=== PATIENT | male | born 1955 | race Caucasian/White ===

== ENCOUNTER 2016-08-24 18:52 | Inpatient (IN) ==
[2016-08-24] MEDS ORDERED: Aspirin 81 MG TAB.CHEW PO ONE (19:01)
--- NOTE | 2016-08-24 19:06 | Emergency Department Note ---
Disposition Clinical Impression: Chest pain Qualifiers: Chest pain type: unspecified Qualified Code(s): R07.9 - Chest pain, unspecified Disposition: Admitted As Inpatient Condition: Fair Forms: ED Satisfaction Letter Time of Disposition: 21:13 Chest Pain HPI - General Chief Complaint: ED Chest Pain Stated Complaint: CP Time Seen by Provider: 08/24/16 18:53 Source: patient Mode of arrival: EMS Limitations: no limitations Vital Signs Reviewed: Yes Nursing Notes Reviewed: Yes - History of Present Illness HPI Narrative: Patient is a 61-year-old male who presents to [facility] ED with a chief complaint of chest pain and difficulty breathing. States had some shortness of breath last night when he was laying down and had to sit up. Has been admitted in the past for congestive heart failure. He takes Lasix 40 mg daily. Past medical history significant for mechanical aortic valve, COPD, atrial fibrillation on Coumadin, heroin use. Patient was in drug rehabilitation at the [place] when he was sitting upright and developed some chest pain earlier today. A rapid response was called and patient was transferred here for further evaluation. Patient states he has been having some worsening chest pain that comes on with ambulation. Denies any nausea, vomiting, fever or chills. No recent cough or cold. No problems with abdominal pain, problems with urination or bowel movements. Last stress test was approximately 2 years ago. 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 Denies: nausea, vomiting, diaphoresis, fever, cough Treatments prior to arrival chest pain: none - Related Data Allergies Allergy/AdvReac Type Severity Reaction Status Date / Time No Known Allergies Allergy Verified 08/24/16 19:27 All systems ED: reviewed and negative except as stated. Chest Pain PMH - Past Medical History Medical history: Reports: atrial fibrillation, COPD Surgical history: Reports: heart valve replacement (mechanical aortic valve ( 2007)) - Social History Smoking Status: Current every day smoker Drug use: Reports: IVDU (heroin, last used 2 wks ago) Physical Exam - General Limitations: no limitations General appearance: alert, in no apparent distress - Head Head exam: atraumatic, normocephalic, normal inspection - Eye Eye exam: Present: normal appearance, PERRL, EOMI - ENT ENT exam: normal exam, normal oropharynx, mucous membranes moist - Neck Neck exam: Present: normal inspection, full ROM, trachea midline - Chest Chest inspection: Present: normal inspection, symmetric chest wall rise - Respiratory Respiratory exam: Present: normal lung sounds bilaterally - Cardiovascular Cardiovascular exam: Present: regular rate, normal rhythm, normal heart sounds - Abdominal Exam Abdominal exam: Present: soft, Non-Tender. Absent: tenderness, distention, guarding, rebound, rigidity - Extremities Exam Extremities exam: Present: normal inspection, full ROM. Absent: tenderness, pedal edema - Back Exam Back exam: Present: normal inspection, full ROM. Absent: tenderness - Neurological Exam Neurological exam: Present: alert, oriented X3 - Psychiatric Psychiatric exam: Present: normal affect, normal mood - Skin Skin exam: Present: warm, dry, intact, normal color Course Course Narrative: Patient seen and examined. Chest pain and difficulty breathing. Has had history of congestive heart failure. His lungs sound clear bilaterally. Chest pain seems atypical as it is sharp and left-sided. We will do a cardiopulmonary workup. - Reevaluation(s) Reevaluation #1: Cardiopulmonary workup unremarkable. He does have some signs of pulmonary edema on chest x-ray. However since he is having worsening exertional dyspnea and chest pain, we will go ahead and admit him for chest pain, rule out ACS. I spoke with the hospitalist Dr. Ricardo who has accepted patient for admission. Time: 21:08 Vital Signs Temperature 97.6 F 08/24/16 18:54 Pulse Rate 66 08/24/16 18:54 Respiratory Rate 20 08/24/16 18:54 Blood Pressure 127/79 08/24/16 18:54 O2 Sat by Pulse Oximetry 96 08/24/16 18:54 Temperature 97.6 F 08/24/16 18:54 Pulse Rate 60 08/24/16 20:35 Respiratory Rate 16 08/24/16 20:35 Blood Pressure 122/84 08/24/16 20:35 O2 Sat by Pulse Oximetry 94 L 08/24/16 20:35 Oxygen Delivery Oxygen Delivery Room Air Chest Pain - Medical Records Medical records reviewed: Yes I reviewed the patient's medical records. - Lab Data Lab results reviewed: Yes I reviewed the patient's lab results. Result diagrams: 08/24/16 19:22 08/24/16 19:22 Lab Results 08/24/16 08/24/16 08/24/16 Range/Units 19:22 19:22 19:22 WBC 11.4 H (4.3-11.1) K/mcL RBC 5.18 (4.19-5.50) M/mcL Hgb 15.2 (12.9-16.9) g/dL Hct 45.4 (37.5-50.1) % MCV 87.6 (83.0-100.0) fL MCH 29.3 (28.0-33.3) pg MCHC 33.5 (31.6-35.5) g/dL RDW 14.2 (11.5-14.5) % Plt Count 229 (140-400) K/mcL MPV 10.3 (9.4-12.4) fL Immature Gran % 0.5 (0-4) % Seg Neutrophils % 78.2 % Lymphocytes % 11.0 % Monocytes % 8.6 % Eosinophils % 1.3 % Basophils % 0.4 % Neutrophils # 8.9 (1.6-8.9) K/mcL Lymphocytes # 1.3 (0.6-4.6) K/mcL Monocytes # 1.0 (0.0-1.3) K/mcL Eosinophils # 0.2 (0.0-0.6) K/mcL Basophils # 0.1 (0.0-0.2) K/mcL PT 22.9 H (9.4-12.1) Seconds INR 2.1 APTT 38.8 H (26.0-36.0) Seconds Sodium (136-145) mEq/L Potassium (3.5-4.5) mEq/L Chloride (98-109) mEq/L Carbon Dioxide (19-29) mEq/L BUN (8-26) mg/dL Creatinine (0.72-1.25) mg/dL Est GFR ( Amer) (> 60) Est GFR (Non-Af Amer) (> 60) BUN/Creatinine Ratio (6-26) Glucose (70-99) mg/dL Calculated Osmolality (280-300) Calcium (8.6-10.8) mg/dL Troponin I (0-0.03) ng/mL B-Natriuretic Peptide 85 (0-100) pg/mL 08/24/16 08/24/16 Range/Units 19:22 19:22 WBC (4.3-11.1) K/mcL RBC (4.19-5.50) M/mcL Hgb (12.9-16.9) g/dL Hct (37.5-50.1) % MCV (83.0-100.0) fL MCH (28.0-33.3) pg MCHC (31.6-35.5) g/dL RDW (11.5-14.5) % Plt Count (140-400) K/mcL MPV (9.4-12.4) fL Immature Gran % (0-4) % Seg Neutrophils % % Lymphocytes % % Monocytes % % Eosinophils % % Basophils % % Neutrophils # (1.6-8.9) K/mcL Lymphocytes # (0.6-4.6) K/mcL Monocytes # (0.0-1.3) K/mcL Eosinophils # (0.0-0.6) K/mcL Basophils # (0.0-0.2) K/mcL PT (9.4-12.1) Seconds INR APTT (26.0-36.0) Seconds Sodium 135 L (136-145) mEq/L Potassium 3.9 (3.5-4.5) mEq/L Chloride 103 (98-109) mEq/L Carbon Dioxide 25 (19-29) mEq/L BUN 14 (8-26) mg/dL Creatinine 0.89 (0.72-1.25) mg/dL Est GFR ( Amer) > 60 (> 60) Est GFR (Non-Af Amer) > 60 (> 60) BUN/Creatinine Ratio 16 (6-26) Glucose 108 H (70-99) mg/dL Calculated Osmolality 281 (280-300) Calcium 8.5 L (8.6-10.8) mg/dL Troponin I 0.01 (0-0.03) ng/mL B-Natriuretic Peptide (0-100) pg/mL - Radiology Data Radiology results reviewed: Yes I reviewed the patient's radiology results. Chest X-Ray 08/24/16 19:01 IMPRESSION: Increasing bilateral interstitial infiltrates, likely related to worsening pulmonary edema with associated small pleural effusion. Superimposed pneumonia cannot be excluded. D/ / 08/24/2016 19:28:15 Julio Gaming MD / Isabel Lyn Interpreting Provider: Julio Gaming MD - EKG Data EKG attestation: Yes I reviewed and interpreted this EKG. EKG results narrative: EKG done at 1853 shows normal sinus rhythm with a rate of [address] elevation or depression. Normal axis. Heart Score - Score History: Moderately Suspicious EKG: Normal Age: 45-65 Risk Factors: Equal/Greater than 3 risk factor or history of atherosclerotic disease Troponin: Less than normal limit HEART Score Total: 4
--- NOTE | 2016-08-24 19:28 | Emergency Department Note ---
START Narrative - START START: I examined this patient and my medical decision-making was reviewed with the SENIOR QUALITY ASSURANCE SPECIALIST/PA/Advanced Practice Nurse/Resident Physician. I agree with the documented findings, disposition and treatment plan as described except to the extent set forth below. 61 yo male presents from the [place] inpatient rehab with chest pain . Sharp chest pain in the L side of chest without radiation worse with exertion, increasing over the past week. Acute onset, labs or ECG were not performed prior to arrival. CP improved without intervention. chest pain not reproducible with palpation. Patient states that he became short of breath during his episode of chest pain however he denied diaphoresis, nausea, vomiting. Initial troponin negative. EKG shows a normal sinus rhythm with rate of 66 without evidence of STEMI. Patient will be admitted to the hospital for further care and evaluation of his chest pain to rule out ACS.
[2016-08-24 19:32] LABS: Basophils # 0.1 K/mcL (0.0-0.2); Basophils % 0.4 %; Eosinophils # 0.2 K/mcL (0.0-0.6); Eosinophils % 1.3 %; Hematocrit 45.4 % (37.5-50.1); Hemoglobin 15.2 g/dL (12.9-16.9); Immature Granulocytes % 0.5 % (0-4); Lymphocytes # 1.3 K/mcL (0.6-4.6); Mean Corpuscular HGB Conc 33.5 g/dL (31.6-35.5); Mean Corpuscular Hemoglobin 29.3 pg (28.0-33.3); Mean Corpuscular Volume 87.6 fL (83.0-100.0); Mean Platelet Volume 10.3 fL (9.4-12.4); Monocytes % 8.6 %; Neutrophils # 8.9 K/mcL (1.6-8.9); Platelet Count 229 K/mcL (140-400); Red Blood Count 5.18 M/mcL (4.19-5.50); Red Cell Distribution Width 14.2 % (11.5-14.5); Segmented Neutrophils % 78.2 %
[2016-08-24 19:39] LABS: INR 2.1; Prothrombin Time 22.9 Seconds (9.4-12.1)
[2016-08-24 19:41] LABS: Activated Partial Thrombo Time 38.8 Seconds (26.0-36.0)
[2016-08-24 19:44] LABS: BUN/Creatinine Ratio 16 (6-26); Blood Urea Nitrogen 14 mg/dL (8-26); Calcium 8.5 mg/dL (8.6-10.8); Carbon Dioxide 25 mEq/L (19-29); Chloride 103 mEq/L (98-109); Glucose 108 mg/dL (70-99); Osmolality,Calculated 281 (280-300); Potassium 3.9 mEq/L (3.5-4.5); Sodium 135 mEq/L (136-145); eGFR For African Americans > 60 (> 60); eGFR For Non-African Americans > 60 (> 60)
--- NOTE | 2016-08-25 00:44 | Internal Med History&Physical ---
Date of Encounter: 08/25/16 Time of Encounter: 00:39 Assessment and Plan (1) Chest pain Current visit: Yes Status: Acute Left-sided chest pain in patient with history of a mechanical aortic valve replacement and history of IV drug Use. Initial cardiac biomarkers are negative for ischemia. Will continue monitoring cardiac biomarkers. Telemetry monitoring. Echocardiogram. History of a fib. Continue with anticoagulation. Monitor coagulation profile. Cardiology eval. Urine toxicology. Qualifiers: Chest pain type: precordial pain Qualified Code(s): R07.2 - Precordial pain (2) History of mechanical aortic valve replacement Current visit: Yes Status: Acute (3) History of heroin use Current visit: Yes Status: Acute Internal Medicine - H&P: HPI Chief complaint: Chest pain Admitted From: Emergency Dept Plans for Post Hospital Care: Transfer Inp Rehab Fac History of present illness: Mr. Augustine is a 61 year old male with history of COPD, former smoker, heroin use , aortic valve replacement, anticoagulation with Coumadin, with INR of 2.1, presented from the [place] for evaluation of chest pain. Patient states that earlier today he had left-sided chest pain, pressure-like, 4 out of 10, intermittent. Patient states that he has not had a pain like this before. During my encounter with the patient he was complaining of pain 2 out of 10. However, 2 years ago he underwent a stress test which was essentially unremarkable. Patient denies fever, cough, diarrhea, constipation, loss of consciousness. Initial workup in the emergency department revealed a hemoglobin of 14.2, hematocrit 45.4, platelet count 229,000. Biochemistry revealed a sodium of 135, potassium 3.9, chloride 103, bicarbonate 25, BUN/ creatinine 14, creatinine 0.99, glucose 108. Troponin was 0.01. A chest x-ray was obtained and reported revealed that pneumonia could not be excluded. Past Med Surg Social Fam HX - Past Medical History Medical history: atrial fibrillation, COPD Psychiatric history: no psych history - Past Surgical History Surgical History: heart valve replacement - Social History Smoking Status: Current some day smoker Smokeless Tobacco Status: No Alcohol use: none Drug use: IVDU - Family History Father History Unknown: Yes Internal Medicine - H&P: Meds Acetaminophen [Tylenol] 650 mg PO Q6H PRN 08/24/16 [History] Furosemide [Lasix] 40 mg PO DAILY 08/24/16 [History] Mupirocin [Bactroban Oint] 1 appl TP BID 08/24/16 [History] Naloxone HCl [Narcan] 4 mg NS AD PRN 08/24/16 [History] Potassium Chloride [Klor-Con 10] 20 meq PO BID 08/24/16 [History] Allergies No Known Allergies Allergy (Verified 08/24/16 19:27) All Systems PM: A 10-system review of systems was performed and is negative for pertinent findings except as documented above in the HPI. - Constitutional Constitutional: as per HPI, no chills, no fever(s), no night sweats - EENT Eyes: as per HPI, no change in vision, no discharge, no pain, no photophobia Ears: as per HPI, no ear discharge, no ear pain, no tinnitus Nose, mouth and throat: as per HPI, no dysphagia, no nasal discharge, no neck pain, no sore throat - Breasts Breasts: as per HPI - Cardiovascular Cardiovascular ROS IM: as per HPI, no chest pain, no diaphoresis, no dyspnea, no lightheadedness, no palpitations, no syncope - Respiratory Respiratory: as per HPI, no cough, no dyspnea, no wheezing, no excessive phlegm production - Gastrointestinal Gastrointestinal: as per HPI, no abdominal pain, no diarrhea, no hematemesis, no hematochezia, no melena, no nausea, no vomiting - Genitourinary Genitourinary ROS male: as per HPI - Musculoskeletal Musculoskeletal ROS IM: as per HPI, no numbness, no tingling - Integumentary Integumentary IM: as per HPI, no rash, no unusual bruising - Neurological Neurological ROS: as per HPI, no confusion, no convulsions, no focal weakness, no numbness, no tingling, no tremor(s) - Psychiatric Psychiatric: as per HPI - Endocrine Endocrine IM: as per HPI - Hematologic/Lymphatic Hematologic/Lymphatic: as per HPI, no easy bruising - Allergic/Immunologic Allergic/Immunologic: as per HPI - Constitutional Vitals: Temp Pulse Resp BP Pulse Ox 97.8 F 65 16 127/77 95 08/24/16 23:41 08/24/16 23:41 08/24/16 23:41 08/24/16 23:41 08/24/16 23:41 General appearance: Present: A&O X 3, no acute distress - Head Head exam: Present: atraumatic, normocephalic - Eye Eye exam: Present: PERRL, conjuntiva pink, sclera anicteric Pupils: Present: PERRL - Neck Neck exam general surgery: Present: supple, trachea midline. Absent: lymphadenopathy - Respiratory Respiratory exam: Present: CTAB. Absent: accessory muscle use, rales, rhonchi, wheezes - Cardiovascular Cardiovascular exam: Present: RRR, +S1, +S2. Absent: diastolic murmur, gallop, rubs, systolic murmur - GI/Abdominal GI/Abdominal exam: Present: normal bowel sounds, soft, no peritoneal signs. Absent: distended, tenderness - Extremities Exam Extremities exam: Present: warm, radial pulses palpable and symetrical. Absent : calf tenderness, cyanotic, pedal edema - Neurological Exam Neurological exam: Present: CN II-XII intact, oriented X3, no focal deficits. Absent: pronater drift, facial droop, speech deficit - Skin Skin exam: Present: dry, intact Internal Med - H&P Results - Labs CBC & Chem 7: 08/24/16 19:22 08/24/16 19:22
[2016-08-25] MEDS ORDERED: Acetaminophen 325 MG TABLET PO PRN (01:28)
[2016-08-25] MEDS ORDERED: *HR* Heparin 5,000 UNIT/ML VIAL IVP ONE (01:28)
[2016-08-25] MEDS ORDERED: *HR* Heparin 5,000 UNIT/ML VIAL IVP PRN ×2 (01:28)
[2016-08-25] MEDS ORDERED: Nitroglycerin 0.4 MG TAB.SUBL SL PRN (01:28)
[2016-08-25] MEDS ORDERED: Naloxone 0.4 MG/ML INJ IVP PRN (01:28)
[2016-08-25] MEDS ORDERED: Ondansetron 4 MG/2 ML VIAL IVP PRN (01:28)
[2016-08-25] MEDS ORDERED: Heparin 25,000 UNIT/500 ML D5W 25,000 UNIT/500 ML MLS IVC SCH (01:30)
[2016-08-25 03:22] LABS: Basophils # 0.1 K/mcL (0.0-0.2); Basophils % 0.7 %; Eosinophils # 0.2 K/mcL (0.0-0.6); Eosinophils % 2.2 %; Hematocrit 44.5 % (37.5-50.1); Hemoglobin 14.7 g/dL (12.9-16.9); Immature Granulocytes % 0.4 % (0-4); Immature Platelets 4.7 % (1.1-6.1); Lymphocytes # 1.2 K/mcL (0.6-4.6); Mean Corpuscular Hemoglobin 29.4 pg (28.0-33.3); Mean Platelet Volume 10.7 fL (9.4-12.4); Monocytes # 0.7 K/mcL (0.0-1.3); Monocytes % 9.3 %; Neutrophils # 5.6 K/mcL (1.6-8.9); Platelet Count 181 K/mcL (140-400); Red Cell Distribution Width 14.2 % (11.5-14.5); Segmented Neutrophils % 72.4 %
[2016-08-25 03:26] LABS: INR 2.4; Prothrombin Time 26.5 Seconds (9.4-12.1)
[2016-08-25 03:36] LABS: BUN/Creatinine Ratio 17 (6-26); Blood Urea Nitrogen 13 mg/dL (8-26); Calcium 8.7 mg/dL (8.6-10.8); Carbon Dioxide 23 mEq/L (19-29); Chloride 104 mEq/L (98-109); Chol/HDL Ratio 4.6 (0-4.9); Cholesterol 151 mg/dL (< 200); Glucose 93 mg/dL (70-99); HDL Cholesterol 33 mg/dL (40-59); LDL Cholesterol,Calculated 103 mg/dL (0-99); Osmolality,Calculated 280 (280-300); Potassium 3.5 mEq/L (3.5-4.5); Sodium 135 mEq/L (136-145); Triglycerides 74 mg/dL (< 150); eGFR For African Americans > 60 (> 60); eGFR For Non-African Americans > 60 (> 60)
[2016-08-25] MEDS: Famotidine 20 MG/2 ML VIAL IVP SCH ×2 (05:47→17:49)
[2016-08-25] MEDS ORDERED: Aspirin 81 MG TAB.CHEW PO SCH (09:00)
[2016-08-25 09:21] LABS: Amphetamine Screen,Urine Negative ng/mL (Cutoff=1000); Barbiturate Screen,Urine Negative ng/mL (Cutoff=200); Benzodiazepines Screen,Urine Negative ng/mL (Cutoff=200); Cannabinoid Screen,Urine Negative ng/mL (Cutoff = 50); Cocaine Screen,Urine Negative ng/mL (Cutoff= 300); Opiate Screen,Urine Negative ng/mL (Cutoff=300); Phencyclidine Screen,Urine Negative ng/mL (Cutoff=25)
[2016-08-25] MEDS ORDERED: Regadenoson 0.4 MG/5 ML SYRINGE IVP ONE (12:45)
--- NOTE | 2016-08-25 14:35 | Nuclear Medicine Stress Report ---
Regadenoson Nuclear Stress Name: Cruzito Augustine Date of Study: 08/25/2016 Date: 1955 Ht: 77.0 in Medical Record#: [id number] Age: 61 Wt: 238.0 lb Gender: Male Order #: [id number] Location: [facility] Room: [facility] Supervising Provider: Samantha Bentley CNP Reading Physician: Antonio Torres DO, GREGOR, STERLING ADAME Ordering Physician: Jocelyne Parks CNP Primary Care Physician: [facility] Stress Technologist: Chris Ramos, INSTRUCTIONAL SPECIALIST, CCT Environmental Services Aide: Pablo Olivo Indications: Chest Pain, Shortness of breath Impression: Pharmacologic stress ECG is negative for ischemia at level of heart rate achieved. Gated EF = 68%. Perfusion imaging was negative for ischemia or infarct. Stress Test Summary: Stress Test Type: Pharmacologic Regadenoson 0.4mg/5ml given IV Baseline Information: Initial Heart Rate: 61 Blood Pressure: 124/70 Stress Information: Stress Time: 4 min 00 sec Test Terminated Due to (primary): Completed Protocol Maximum Blood Pressure: 126/70 Maximum Heart Rate: 80 Percent Maximum Heart Rate Achieved: 51 Double Product: 10,080 METS Reached: 1 Symptoms: Shortness of breath Nuclear Summary: SPECT myocardial perfusion imaging using Tc99m Sestamibi given intravenously was performed at rest and following cardiac stress testing. The resting images were obtained following initial dose of 10.4 mCi. Following stress an additional dose of 32.8 mCi was given at peak exercise or 30 seconds post regadenoson infusion. Medication Given: Time Medication Dose Units Route Findings: Stress Note * Resting ECG demonstrated normal sinus rhythm. * No baseline arrhythmias were noted. * Pharmacologic stress ECG is negative for ischemia at level of heart rate achieved. * No arrhythmias were noted during stress. * Patient had no chest pain during stress. Hemodynamic responses * Normal hemodynamic responses to pharmacologic stress. Study Quality * Study quality is good. Gated EF % * Gated EF = 68%. Left Ventricle * The left ventricle is not dilated. * LVEDV = 127 mL. NORMALS * Normal wall motion. * Normal segmental perfusion in stress. * Normal Segmental Perfusion in rest. TID * No evidence of transient ischemic dilatation. TID ratio * TID ratio = 1.11. Lung Uptake * There is no evidence of increase lung uptake. Updated by Antonio Torres DO, GREGOR, DEEP, STERLING on 08/25/2016 2:30:41 PM electronically signed on 08/25/2016 2:31:21 PM with status of Final
[2016-08-25 14:55] VITALS: BP 112/70
--- NOTE | 2016-08-25 15:35 | Electrocardiograph Report ---
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
--- NOTE | 2016-08-25 16:10 | Electrocardiograph Report ---
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
--- NOTE | 2016-08-25 17:10 | Event Note ---
Date of Encounter: 08/25/16 Time of Encounter: 16:15 Patient seen and examined. On examination, patient sitting upright in bed. Patient denies pain at this time and states his shortness of breath has improved but he still more short of breath and usual. Chest x-ray consistent with mild fluid overload. No indication of pneumonia at this time. Borderline elevated white count resolved. Vital signs stable. He is on room air. Respirations even and easy. Slightly decreased breath sounds noted to posterior lung field with fair aeration and no evidence of crackles or wheezes. Stress test negative with ejection fraction of 68%. Tox screen is negative. INR still slightly subtherapeutic, we will continue heparin drip and recheck tomorrow. Echocardiogram still pending. financial services sales representative brought on board as the patient is allegedly currently in rehabilitation at the [facility]. Likely discharge early tomorrow pending clinical outcomes. ITS Impressions Chest X-Ray 08/24/16 19:01 IMPRESSION: Increasing bilateral interstitial infiltrates, likely related to worsening pulmonary edema with associated small pleural effusion. Superimposed pneumonia cannot be excluded. D/ / 08/24/2016 19:28:15 Julio Gaming MD / Isabel Lyn Interpreting Provider: Julio Gaming MD Nuclear stress test impression: Pharmacologic stress ECG is negative for ischemia at the level of heart rate achieved. Gait ejection fraction equals 68% . Perfusion imaging was negative for ischemia or infarct.
--- NOTE | 2016-08-25 17:46 | Discharge Summary ---
Date of Encounter: 08/25/16 Time of Encounter: 17:00 - Discharge Diagnosis (1) COPD (chronic obstructive pulmonary disease) Priority: Secondary Status: Chronic Comments: No acute exacerbation. Imaging and symptoms more consistent with mild fluid overload. No indication of infectious process. (2) Chest pain Priority: Primary Status: Resolved Comments: Patient denied chest pain on day of discharge. Troponins negative. Stress test negative. Acute coronary syndrome ruled out. Echocardiogram still pending at time of discharge, patient stating he was not willing to wait until echocardiogram was performed. Recommend close outpatient follow-up and consideration for outpatient echo at the [facility]'s discretion. (3) History of mechanical aortic valve replacement Priority: Secondary Status: Chronic Comments: On Coumadin. INR slightly subtherapeutic at 2.1 so the patient was placed on a heparin drip during this admission. INR 2.4 on day of discharge, recommend follow-up outpatient within the next 1-2 days to have INR rechecked. (4) History of heroin use Priority: Secondary Status: Chronic Comments: Tox screen negative. Patient denies recent drug abuse. - Discharge Medications Home Medications: Acetaminophen [Tylenol] 650 mg PO Q6H PRN 08/24/16 [History] Furosemide [Lasix] 40 mg PO DAILY 08/24/16 [History] Mupirocin [Bactroban Oint] 1 appl TP BID 08/24/16 [History] Naloxone HCl [Narcan] 4 mg NS AD PRN 08/24/16 [History] Potassium Chloride [Klor-Con 10] 20 meq PO BID 08/24/16 [History] Warfarin [Coumadin] 3 mg PO 08/25/16 [History] Warfarin [Coumadin] 4 mg PO 08/25/16 [History] Allergies/Adverse Reactions: Allergies No Known Allergies Allergy (Verified 08/24/16 19:27) Procedures/tests Complete & Pending: Procedures Performed prior 72 hours Category Date Time Status NM lauren perf SPECT multi [NM] Routine Exams 08/25/16 10:42 Taken SP pharm nuclear stress Routine Y 08/25/16 10:42 Completed Date of admission: 08/25/16 02:35 Primary care physician: [facility] Consults: 08/25/16 01:28 Consult to Cardiac Rehabilitation-Phase1 [CONS] Routine Comment: Reason for Consult: AMI Call Completed: Yes Consult to Nurse Navigator [CONS] Routine Comment: Discharging clinician: Jocelyne Parks Anticipated date of discharge: 08/25/16 (back to the [facility]) - Patient Status Disposition: Transfer Inpatient Rehab Fac Condition: Fair Functional capacity at discharge: independent ambulation Overall status at discharge: patient is back to baseline - Discharge Instructions [facility] Provider[facility] - Additional Instructions: Follow-up with primary care provider within one to 2 weeks, have INR rechecked within 1-2 days - Diet and Activity Activity: increase activity as tolerated Diet: regular diet Hospital course: Mr. Augustine is a 61 year old male with past medical history of COPD, aortic valve replacement on Coumadin, former tobacco abuse, former IV drug abuse of heroin. Patient presented to the emergency department transferred from the [facility] for chief complaint of chest pain. Patient stating earlier on the day of presentation he developed left-sided chest pain, pressure-like, and intermittent. Patient stating he had not had pain like this before. Of note, patient is currently in the 21 day substance abuse program at the [facility]. Tox screen negative. Chest xray consistent with mild fluid overload without signs of acute infectious process. Patient was admitted to the hospitalist service for further evaluation and management. Troponins negative 3. Patient had a nuclear stress test that was negative for ischemia or infarct revealed an ejection fraction of 68%. His INR was subtherapeutic so he was placed on a heparin drip during this admission. He denied chest pain throughout this admission. He did endorse mild shortness of breath stated had improved while he was admitted. No pedal edema or other signs of fluid overload. Patient tolerated regular diet well admitted. He tolerated room air. Ideally, patient would have been kept overnight to obtain an echocardiogram however patient stated he had to get back to the [facility]. Acute coronary syndrome ruled out. Regarding his subtherapeutic INR, patient stating that [facility] and 2 days prior to presentation, his INR was 1.5. He is currently on 4 mg of Coumadin on Mondays and 3 mg on every other day. His INR on day of discharge was 2.4 and he was discharged back to the [facility] in stable condition and instructed to have his INR rechecked within 1-2 days- further titration left at the [facility] discretion given that his dosages were altered just days prior to this admission. Recommend outpatient echocardiogram at the discretion of his primary care team. ITS Impressions Chest X-Ray 08/24/16 19:01 IMPRESSION: Increasing bilateral interstitial infiltrates, likely related to worsening pulmonary edema with associated small pleural effusion. Superimposed pneumonia cannot be excluded. D/ / 08/24/2016 19:28:15 Julio Gaming MD / Isabel Lyn Interpreting Provider: Julio Gaming MD Nuclear stress test impression: Pharmacologic stress ECG is negative for ischemia at the level of heart rate achieved. Gait ejection fraction equals 68% . Perfusion imaging was negative for ischemia or infarct. - Time Spent with Patient Total time spent providing and/or coordinating discharge services: - Constitutional Vitals: Temp Pulse Resp BP Pulse Ox 98.0 F 61 16 112/70 97 08/25/16 14:54 08/25/16 14:54 08/25/16 14:54 08/25/16 14:54 08/25/16 14:54 General appearance: Present: A&O X 3, no acute distress, answers questions appropriately - Head Head exam: Present: atraumatic, normocephalic - Eye Eye exam: Present: PERRL, conjuntiva pink, sclera anicteric Pupils: Present: PERRL - Neck Neck exam general surgery: Present: supple, trachea midline. Absent: lymphadenopathy - Respiratory Respiratory exam: Present: decreased breath sounds. Absent: accessory muscle use, CTAB, rales, respiratory distress, rhonchi, wheezes - Cardiovascular Cardiovascular exam: Present: RRR, +S1, +S2. Absent: diastolic murmur, gallop, rubs, systolic murmur - GI/Abdominal GI/Abdominal exam: Present: normal bowel sounds, soft, no peritoneal signs. Absent: distended, tenderness - Extremities Exam Extremities exam: Present: warm, radial pulses palpable and symetrical. Absent : calf tenderness, cyanotic, pedal edema - Neurological Exam Neurological exam: Present: alert, CN II-XII intact, normal gait, oriented X3, no focal deficits, strengths equal and symetr throughout. Absent: pronater drift, facial droop, speech deficit - Skin Skin exam: Present: dry, intact, normal color, warm
== END 2016-08-25 18:40 | DRG 313 ==
LOC: EMEROO 18:52 → 3BNU 18:52
PROVIDERS: ADMIT Nurse Practitioner Family; ATTEND Nurse Practitioner Family